=== PATIENT | female | born 1930 | race Two or more races ===

== ENCOUNTER 2018-08-28 07:26 | Day surgery (SDC) | payer OTHER | END 2018-08-28 10:05 | disposition home or self-care (01) | LOC: AMB-ENDOS 07:26 | DX: D12.3 Benign neoplasm of transverse colon (principal) ==

== ENCOUNTER → 2020-01-14 | Emergency (ER) | payer OTHER ==
[~2020-01-14] VITALS: Ht 162.6 cm; Wt 72.6 kg
[~2020-01-14] MED LIST: ATORVASTATIN CA20 MG; DILTIAZEM 24HR180 MG; ELIQUIS5 MG; LORAZEPAM2 MG; LOSARTAN POTASS50 MG
== END | disposition home or self-care (01) ==
LOC: ER 10:28
DX: I87.2 Venous insufficiency (chronic) (peripheral) (principal); M77.31 Calcaneal spur, right foot; R60.0 Localized edema

== ENCOUNTER → 2020-02-13 | Outpatient (CLI) | payer OTHER ==
[~2020-02-13] MED LIST changes: +COZAAR100 MG PO; +LEXAPRO5 MG PO; +POLY119PG PO; +ULTRACET PO
== END | disposition home or self-care (01) ==
LOC: LAB 07:48
PROVIDERS: ATTEND Surgery
DX: I10 Essential (primary) hypertension (principal); K64.2 Third degree hemorrhoids; R19.4 Change in bowel habit; K92.1 Melena

== ENCOUNTER 2020-02-25 06:25 | Day surgery (SDC) | payer OTHER ==
[~2020-02-25] VITALS: Ht 157.5 cm; Wt 160.0 kg
[~2020-02-25 06:25] MED LIST changes: -POLY119PG PO; -ULTRACET PO
[2020-02-26] MEDS ORDERED: POLY119PG PO (14:49)
[2020-02-26] MEDS ORDERED: ULTRACET PO (14:51)
== END 2020-02-26 08:00 | disposition home or self-care (01) ==
LOC: CIR.AMB 06:25 → EDSTATUS 09:15 → RECOVERY 09:15 → CIR.AMB 09:15 → O/R 11:45 → SURG 11:45 → O/R 16:07 → CIR.AMB 19:00 → SURG 02-26 14:29
PROVIDERS: ATTEND Surgery
DX: K64.2 Third degree hemorrhoids (principal); N81.6 Rectocele